=== PATIENT | male | born 1965 | race Two or more races ===

== ENCOUNTER 2023-09-13 07:09 | Outpatient (CLI) | payer OTHER | END 2023-09-13 07:15 | disposition home or self-care (01) | LOC: SONOGRAMA 07:09 | PROVIDERS: ATTEND Urology | DX: C61 Malignant neoplasm of prostate (principal); N40.1 Benign prostatic hyperplasia with lower urinary tract symptoms; R97.20 Elevated prostate specific antigen [PSA] ==

== ENCOUNTER 2024-03-20 07:15 | Inpatient (IN) | payer OTHER ==
[~2024-03-20] VITALS: Ht 297.2 cm; Wt 119.7 kg
[2024-03-20] MEDS ORDERED: CARDURA XL8 MG PO (07:17)
[2024-03-20] MEDS ORDERED: IRBESARTAN300 MG PO (07:17)
[2024-03-20] MEDS ORDERED: HYDRALAZINE HC100 MG PO (07:17)
[2024-03-20] MEDS ORDERED: CHLORTHALIDONE (07:19)
[2024-03-20 07:28] VITALS: BP 117/74
[2024-03-20 07:32] VITALS: BP 138/85
[2024-03-20 07:39] LABS: HEMATOCRIT 32.8 % (39.0-48.0); HEMOGLOBIN 10.8 g/dL (13-16.00); MEAN CELL VOLUME 80.4 fL (80.0-100.00); MEAN CORPUSCULAR HEMOGLOBIN 26.4 pg (27.00-32.0); MEAN CORPUSCULAR HGB CONC 32.9 g/dl (32.0-36.0); PLATELET COUNT 242 K/uL (150-450); RED BLOOD COUNT 4.08 M/uL (4.00-6.00); RED CELL DISTRIBUTION WIDTH 15.3 % (11.5-14.5)
[2024-03-20 07:49] LABS: PH,URINE 5.5 (5.0-8.0); URINE APPEARANCE Clear; URINE BILIRRUBIN Negative (NEGATIVE); URINE BLOOD Large; URINE COLOR Yellow; URINE GLUCOSE Negative (NEGATIVE); URINE KETONE Negative (NEGATIVE); URINE LEUKOCYTE Negative; URINE NITRATE Negative; URINE PROTEIN Trace (NEGATIVE); URINE UROBILINOGEN 0.2 E.U./dl
[2024-03-20 07:55] LABS: URINE RBC 76.8 uL (0.0-20.8); URINE WBC 4.8 uL (0.0-23.2)
[2024-03-20 08:01] LABS: URINE BACTERIA 3.6 uL (0.0-1933); URINE CAST 0.44 uL (0.0-1.40)
[2024-03-20 08:14] LABS: INR 1.03; PARTIAL THROMBOPLASTIN TIME 29.1 SECONDS (22.0-34.0); PROTHROMBIN TIME 11.2 SECONDS (9.0-11.5)
[2024-03-20 08:23] LABS: CALCIUM 9.5 mg/dL (8.5-10.1); CREATININE SERUM 1.33 mg/dL (0.70-1.30); GFR 55.62
[2024-03-20 08:59] LABS: RH POSITIVE
[2024-03-27] MEDS ORDERED: CEFAZOLIN SODIUM 1,000 MG in 0.9 % SODIUM CHLORIDE 50 ML IV ONE (09:30)
[2024-03-27] MEDS ORDERED: ENOXAPARIN SODIUM 40 MG/0.4 ML SYRINGE SUBCUTANEO ONE (09:30)
[2024-03-27] MEDS ORDERED: DEXTROSE 5 %-0.45 % SOD CHLORD 1,000 ML IV SCH (15:35)
[2024-03-27] MEDS ORDERED: OxyCODONE HCL/APAP UD (PERCOCET) PO PRN (15:45)
[2024-03-27] MEDS ORDERED: MORPHINE SULFATE 4 MG/ML CARTRIDGE IV PRN (15:45)
[2024-03-27] MEDS ORDERED: ONDANSETRON HCL 2 MG/ML VIAL IV PRN (15:45)
[2024-03-27] MEDS ORDERED: SIMETHICONE 125 MG CAPSULE PO SCH (17:00)
[2024-03-27] MEDS ORDERED: CEFAZOLIN SODIUM 1,000 MG VIAL IV SCH (17:00)
[2024-03-27] MEDS ORDERED: DOCUSATE SODIUM 100MG CAP PO SCH (17:00)
[2024-03-27 18:45] VITALS: BP 138/85; O2SAT 96
[2024-03-27] MEDS ORDERED: FAMOtidine 20 MG TABLET PO SCH (21:00)
[2024-03-28 01:58] VITALS: BP 127/75; O2SAT 96
[2024-03-28 08:00] VITALS: BP 129/74; O2SAT 100
[2024-03-28 08:50] LABS: CALCIUM 8.2 mg/dL (8.5-10.1); CREATININE SERUM 1.4 mg/dL (0.70-1.30); GFR 52.42; POTASSIUM 3.44 mEq/L (3.5-5.1)
[2024-03-28 12:51] LABS: HEMATOCRIT 33.9 % (39.0-48.0); HEMOGLOBIN 11.1 g/dL (13-16.00); MEAN CELL VOLUME 80.1 fL (80.0-100.00); MEAN CORPUSCULAR HEMOGLOBIN 26.3 pg (27.00-32.0); MEAN CORPUSCULAR HGB CONC 32.8 g/dl (32.0-36.0); PLATELET COUNT 163 K/uL (150-450); RED BLOOD COUNT 4.23 M/uL (4.00-6.00); RED CELL DISTRIBUTION WIDTH 15.1 % (11.5-14.5)
[2024-03-28 15:48] VITALS: BP 127/78; O2SAT 96
[2024-03-28] MEDS ORDERED: ENOXAPARIN SODIUM 40 MG/0.4 ML SYRINGE SUBCUTANEO STA (17:27)
[2024-03-28] MEDS ORDERED: hydrALAZINE HCL 10 MG TABLET PO PRN (17:30)
[2024-03-29 01:16] VITALS: BP 123/79; O2SAT 100
[2024-03-29 08:00] VITALS: BP 117/76; O2SAT 95
[2024-03-29] MEDS ORDERED: IRBESARTAN 150 MG TABLET PO SCH (09:00)
[2024-03-29 16:28] VITALS: BP 156/79; O2SAT 98
== END 2024-03-29 22:43 | disposition home or self-care (01) | DRG 708 ==
LOC: O/R 03-27 05:40 → SURH 03-27 07:00
PROVIDERS: ADMIT Urology; ATTEND Urology
PROC: 8E0W4CZ Robotic Assisted Procedure of Trunk Region, Percutaneous Endoscopic Approach (ICD-10-PCS; 2024-03-27)
PROC: 0VT04ZZ Resection of Prostate, Percutaneous Endoscopic Approach (ICD-10-PCS; principal; 2024-03-27 07:00)
DX: C61 Malignant neoplasm of prostate (principal)

== ENCOUNTER 2024-04-04 08:54 | Emergency (ER) | payer OTHER ==
[~2024-04-04] VITALS: Ht 175.3 cm; Wt 115.7 kg
[~2024-04-04 08:54] MED LIST: CARDURA XL8 MG PO; CHLORTHALIDONE; HYDRALAZINE HC100 MG PO; IRBESARTAN300 MG PO
[2024-04-04 11:44] LABS: HEMATOCRIT 30.8 % (39.0-48.0); MEAN CELL VOLUME 80.5 fL (80.0-100.00); MEAN CORPUSCULAR HGB CONC 32.4 g/dl (32.0-36.0); PLATELET COUNT 314 K/uL (150-450); RED BLOOD COUNT 3.82 M/uL (4.00-6.00); RED CELL DISTRIBUTION WIDTH 14.5 % (11.5-14.5)
[2024-04-04 12:06] LABS: ALBUMIN 2.8 gm/dL (3.4-5.0); BILIRUBIN TOTAL 0.37 mg/dL (0.3-1.2); CALCIUM 9.6 mg/dL (8.5-10.1); CREATININE SERUM 1.4 mg/dL (0.70-1.30); GFR 52.42; GLOBULINA 4.5 G/DL (2.4-3.5); POTASSIUM 3.17 mEq/L (3.5-5.1); TOTAL PROTEIN 7.3 gm/dL (6.4-8.2)
== END 2024-04-04 17:58 | disposition home or self-care (01) ==
LOC: ER 08:56
PROVIDERS: Emergency Medicine
DX: Z97.8 Presence of other specified devices (principal); C61 Malignant neoplasm of prostate; R10.9 Unspecified abdominal pain; I10 Essential (primary) hypertension
CPT/HCPCS: 36415; 74177; 99284; Q9965